=== PATIENT | male | born 1995 | race Hispanic/Latino ===

== ENCOUNTER 2022-05-24 10:52 | Inpatient (IN) | payer SELFPAY ==
[2022-05-24 13:23] LABS: Bilirubin Negative (Negative); Blood, Urine Negative (Negative); Clarity Clear (Clear); Glucose, Urine (Dipstick) Normal (Negative); Ketone, Urine Negative (Negative); Leukocyte Negative Leu/uL (Negative); Nitrite Negative (Negative); Protein, Urine (Dipstick) Negative (Neg-Trace); Specific Gravity, Urine 1.023 (1.002-1.036); Urobilinogen Normal mg/dL (Less than 2); pH, Urine 6.5 (5.0-9.0)
[2022-05-24 14:23] LABS: #Eosinphils 0.1 thou/uL (0.0-0.7); #Lymphocytes 1.9 thou/uL (1.20-3.40); #Monocytes 0.5 thou/uL (0.11-0.59); #Neutrophils 4.3 thou/uL (1.40-6.50); %Basophils 0.5 % (0.0-1.0); %Eosinophils 1.8 % (0.0-10.0); %Lymphocytes 27.5 % (21.0-51.0); %Monocytes 7.7 % (0.0-10.0); %Neutrophils 62.6 % (42.0-75.0); Hemoglobin 15.5 g/dL (14.0-18.0); Mean Corpuscular HGB CONC 33.2 g/dL (32.0-36.0); Mean Corpuscular Hemoglobin 31.8 pg (27.0-31.0); Mean Corpuscular Volume 95.9 fL (78.0-98.0); Mean Platelet Volume 8.3 fL (7.4-10.4); Platelet Count 209 thou/uL (130-400); Red Blood Cell (RBC) Count 4.86 mill/uL (4.70-6.10); White Blood Cell (WBC) Count 6.8 thou/uL (4.8-10.8)
[2022-05-24 14:51] LABS: ALT (SGPT) 53 U/L (8-55); AST (SGOT) 31 U/L (5-34); Albumin 4.4 g/dL (3.5-5.0); Alkaline Phosphatase 99 U/L (40-110); Anion Gap 14 mmol/L (10-20); BUN (Urea Nitrogen) 14 mg/dL (8.9-20.6); Bilirubin, Total 0.4 mg/dL (0.2-1.2); Calc. Creatinine Clearance 0 mL/min (70-130); Carbon Dioxide 24 mmol/L (22-29); Chloride 107 mmol/L (98-107); Globulin 3.1 g/dL (2.4-3.5); Glucose 99 mg/dL (70-105); Potassium 3.6 mmol/L (3.5-5.1); Protein, Total 7.5 g/dL (6.0-8.3); Sodium 141 mmol/L (136-145)
[2022-05-24 16:23] LABS: SARS-CoV-2 NAA Rapid Test Not Detected (NotDetected)
[2022-05-24] MEDS ORDERED: hydrALAZINE 20 MG/ML VIAL SLOW IVP PRN (16:52)
[2022-05-24] MEDS ORDERED: Morphine 2 MG/ML VIAL SLOW IVP PRN (16:52)
[2022-05-24] MEDS ORDERED: Dextrose 50% Abboject 50 ML SYRINGE SLOW IVP PRN (16:52)
[2022-05-24] MEDS ORDERED: Dextrose 5% in Water 1,000 ML IV PRN (16:52)
[2022-05-24] MEDS ORDERED: Ondansetron PF 4 MG/2 ML Vial IVP PRN (16:52)
[2022-05-24] MEDS ORDERED: Promethazine HCl 25 MG/ML VIAL IM PRN (16:52)
[2022-05-24] MEDS ORDERED: ceFAZolin 2 GM/Dextrose 50 ML 2 GM in Premix Bag 1 BAG IVPB SCH (17:00)
[2022-05-24 17:01] VITALS: BMI 32.1
[2022-05-24] MEDS: D5 1/2 NS w/20 mEq KCL 1,000 ML IV SCH (19:00)
[2022-05-24] MEDS: Famotidine/PF 20 mg/2ml Vial SLOW IVP SCH (21:41)
[2022-05-25] MEDS: Famotidine 20 MG TAB PO SCH ×2 (00:30→10:38)
[2022-05-25] MEDS: D5 1/2 NS w/20 mEq KCL 1,000 ML IV SCH (03:54)
[2022-05-25] MEDS: Famotidine/PF 20 mg/2ml Vial SLOW IVP SCH (08:49)
[2022-05-25] MEDS ORDERED: Bupivacaine 0.25% HCL 30 ML VIAL ONE (13:43)
[2022-05-25] MEDS ORDERED: Lidocaine 1% w/Epinephrine 1:100K 20 ML VIAL ONE (13:43)
[2022-05-25] MEDS ORDERED: Famotidine/PF 20 mg/2ml Vial ONE (13:51)
[2022-05-25] MEDS ORDERED: fentaNYL Citrate/PF 100 MCG/2 ML SYRINGE ONE ×2 (13:51)
[2022-05-25] MEDS ORDERED: CEFAZOLIN 2 GM VIAL ONE (13:53)
[2022-05-25] MEDS ORDERED: Sodium Chloride 0.9% 100 ML ONE (13:53)
[2022-05-25] MEDS ORDERED: Ketorolac Tromethamine 30 MG/ML VIAL ONE (14:01)
[2022-05-25] MEDS ORDERED: Lidocaine 1% PF 5 ML VIAL ONE (14:01)
[2022-05-25] MEDS ORDERED: Ondansetron PF 4 MG/2 ML Vial ONE (14:01)
[2022-05-25] MEDS ORDERED: Metoclopramide HCl 10 MG/2 ML VIAL ONE (14:01)
[2022-05-25] MEDS ORDERED: PROPOFOL 200 MG/20 ML VIAL ONE (14:01)
[2022-05-25] MEDS ORDERED: Dexamethasone 20 MG/5 ML VIAL ONE (14:01)
[2022-05-25] MEDS ORDERED: HYDROcodone/Acetaminophen 7.5/325 mg Tablet PO PRN ×2 (14:58)
[2022-05-25 15:14] LABS: Chlam.trachomatis by PCR,Urine Not Detected (NotDetected)
[2022-05-25 16:39] VITALS: BP 123/79; TEMP 98
== END 2022-05-25 17:48 | disposition home or self-care (01) | DRG 352 ==
LOC: ERS 10:52 → MSONC 15:20 → OBSVTOIN 16:52
PROVIDERS: ADMIT Surgery; ATTEND Surgery
PROC: 0YU50JZ Supplement Right Inguinal Region with Synthetic Substitute, Open Approach (ICD-10-PCS; principal; 2022-05-25)
DX: K40.30 Unilateral inguinal hernia, with obstruction, without gangrene, not specified as recurrent (principal); Z23 Encounter for immunization; Z20.822 Contact with and (suspected) exposure to COVID-19; Z79.890 Hormone replacement therapy
CPT/HCPCS: 74177; 76870; 80053; 81003; 85025; 87491; 87591; 93976; C1781; J0690; J2270; J3480; J3490; S0020; S0028; U0002